=== PATIENT | male | born 1965 | race Caucasian/White ===

== ENCOUNTER → 2017-08-20 | Outpatient (CLI) | payer BC ==
--- NOTE | 2017-08-21 07:28 | RAD ---
EXAM DESCRIPTION: Pelvis CLINICAL HISTORY: 51 years Male, HIP PAIN COMPARISON: None. FINDINGS: Single AP view the pelvis shows no displaced pelvic fracture or malalignment. Mild degenerative calcifications arise from the margins of the acetabula bilaterally without hip joint space narrowing. The sacroiliac joints are fairly well-maintained. There is some enthesopathic calcification at the right lesser trochanter. IMPRESSION: Mild degenerative changes, but no acute pelvic abnormality. Electronically signed by: Jose David Villalpando MD 08/21/2017 7:27 AM [facility]
--- NOTE | 2017-08-21 07:31 | RAD ---
EXAM DESCRIPTION: Knee,Left Complete CLINICAL HISTORY: KNEE PAIN COMPARISON: None. FINDINGS: 4 standing views of the left knee shows no evidence of acute fracture, focal bone destruction, or joint dislocation. There is moderate to severe narrowing of the medial and mild narrowing of the lateral tibiofemoral arthritis with moderate joint line osteophytes. Mild flattening and sclerotic changes to the weightbearing articular surface of the medial compartment is seen. Moderate osteophytes of the patellofemoral compartment with mild joint space narrowing is seen. Soft tissues are unremarkable. No significant joint effusion. IMPRESSION: Moderate to severe advanced 3 compartment osteoarthritic changes of the left knee most significantly involving the medial tibiofemoral compartment. Electronically signed by: Lonny Barahona MD 08/21/2017 7:30 AM [facility]
== END | disposition home or self-care (01) ==
LOC: RAD 09:16
PROVIDERS: ATTEND Orthopaedic Surgery
DX: M25.562 Pain in left knee (principal); M25.552 Pain in left hip